=== PATIENT | female | born 1945 | race Two or more races ===

== ENCOUNTER 2020-09-12 05:41 | Inpatient (IN) | payer MEDICAID ==
[~2020-09-12] VITALS: Ht 154.9 cm; Wt 57.6 kg
--- NOTE | 2020-09-12 09:35 | NUR ---
RN NOTES PATIENT ARRIVED AT UNIT TO ROOM 327-2 VIA [facility], ACCOMPANIED BY 2 [employer] MARKETER, TRANSPORTED FROM [facility]. PATIENT AMBULATORY AND AMBULATED FROM GURNEY TO BED.
--- NOTE | 2020-09-12 09:36 | NUR ---
SPA MANAGER ADMITTING NOTES ADMITTED THIS 75-Y/O FEMALE FROM [facility] W/ ADMITTING DIAGNOSIS OF SEPSIS/COUGH AND MEDICAL HISTORY OF DM, HTN, HLD, HX OF BREAST CA AND MASTECTOMY, ADMITTED BY MELECIO ARZOLA NP. PATIENT IS AWAKE AND VERBALLY RESPONSIVE, A/O X3-4, TAGALOG-SPEAKING BUT UNDERSTANDS SLOVENIAN LANGUAGE. BREATHING EVEN AND UNLABORED, TOLERATING ROOM AIR; NOTED W/ OCCASIONAL NON-PRODUCTIVE COUGH. NO SWALLOWING ISSUES NOTED. PATIENT VERBALIZED THAT SHE HAS UPPER DENTURES. RECENT TRA[place]EL [place] TO THE [facility]. AMBULATORY W/ STEADY GAIT, MINIMAL ASSISTANCE NEEDED, CONTINENT OF BOWEL AND BLADDER. IV LINE ON RAC #22 INTACT AND PATENT. NO SKIN ISSUES NOTED. DTR-IN-LAW AND PATIENT'S SON AWARE OF PATIENT'S ADMISSION. SAFETY PRECAUTIONS INSTITUTED: BED LOCKED AND ON LOWEST POSITION, SR UP X2, CALL LIGHT USE DEMONSTRATED TO PATIENT FOR STAFF ASSISTANCE. WILL CONTINUE TO MONITOR.
[2020-09-12 10:00] VITALS: BP 157/74
[2020-09-12] MEDS ORDERED: HYDROCODONE/APAP 5/325MG TABLET PO PRN (11:00)
[2020-09-12] MEDS ORDERED: ACETAMINOPHEN 325 MG TABLET PO PRN (11:00)
[2020-09-12] MEDS ORDERED: MAG HYDROX/AL HYDROX/SIMETH 30 ML UDC PO PRN (11:00)
[2020-09-12] MEDS ORDERED: MAGNESIUM HYDROXIDE 30 ML UDC PO PRN (11:00)
[2020-09-12] MEDS ORDERED: ONDANSETRON HCL/PF 4 MG/2 ML VIAL IVP PRN (11:00)
[2020-09-12] MEDS ORDERED: Z GUARD REMEDY 2 OZ OINT TP PRN (11:00)
[2020-09-12] MEDS ORDERED: TEMAZEPAM 15 MG CAPSULE PO PRN (11:00)
[2020-09-12] MEDS ORDERED: CLOP75TA15 PO (11:35)
[2020-09-12] MEDS ORDERED: TAMO20TA4 PO (11:35)
[2020-09-12] MEDS ORDERED: [UNRECOGNIZED DRUG - OTHER] PO (11:35)
[2020-09-12] MEDS ORDERED: MULT-1160 PO (11:35)
[2020-09-12] MEDS ORDERED: ALEN70TA80 PO (11:35)
[2020-09-12] MEDS ORDERED: INSU100V7 SQ (11:35)
[2020-09-12] MEDS ORDERED: OMEG-220 PO (11:35)
[2020-09-12] MEDS ORDERED: AMLO-212 PO (11:35)
[2020-09-12] MEDS ORDERED: PANT40TA2 PO (11:35)
[2020-09-12] MEDS ORDERED: LOSA50TA39 PO (11:35)
[2020-09-12] MEDS ORDERED: SITA1TAB2 PO (11:35)
[2020-09-12] MEDS ORDERED: CALC1TAB3 PO (11:35)
[2020-09-12] MEDS ORDERED: [UNRECOGNIZED DRUG - OTHER] PO (11:36)
[2020-09-12 11:50] LABS: BASOPHILS # (AUTO) 0.1 /CMM (0.0-0.2); BASOPHILS % (AUTO) 0.6 % (0.0-2.0); EOSINOPHILS % (AUTO) 6.7 % (0.0-6.0); HEMATOCRIT 38 % (33-45); HEMOGLOBIN 12.6 g/dL (11.5-14.8); LYMPHOCYTES # (AUTO) 1.5 /CMM (0.8-4.8); LYMPHOCYTES % (AUTO) 14.9 % (20.0-44.0); MEAN CORPUSCULAR HGB CONC 33 g/dl (31.0-36.0); MEAN CORPUSCULAR VOLUME 85 fL (82-100); MONOCYTES # (AUTO) 1.5 /CMM (0.1-1.30); MONOCYTES % (AUTO) 14.3 % (2.0-12.0); NEUTROPHILS # (AUTO) 6.5 /CMM (1.8-8.9); NEUTROPHILS % (AUTO) 63.5 % (43.0-81.0); PLATELET COUNT (AUTO) 351 /CMM (150-450); RED BLOOD CELL COUNT(AUTO) 4.49 MIL/uL (4.0-5.2); WHITE BLOOD COUNT (AUTO) 10.3 K/uL (4.3-11.0)
[2020-09-12] MEDS ORDERED: DEXTROSE 50%-WATER 50 ML DISP.SYRIN IV PRN (12:00)
[2020-09-12 12:02] LABS: CALCIUM, SERUM 8.8 mg/dL (8.5-10.1); CARBON DIOXIDE 26 mmol/L (21-32); CHLORIDE 104 mmol/L (98-107); CREATININE 0.8 mg/dL (0.6-1.3); GLUCOSE 92 mg/dL (74-106); POTASSIUM 3.8 mmol/L (3.5-5.1); SODIUM SERUM 138 mmol/L (136-145); UREA NITROGEN, BLOOD 8 mg/dL (7-18)
[2020-09-12] MEDS ORDERED: ENOXAPARIN SODIUM 40 MG/0.4 ML DISP.SYRIN SQ SCH (12:30)
[2020-09-12] MEDS: TAMOXIFEN CITRATE 10 MG TABLET PO SCH (13:08)
[2020-09-12] MEDS: BLOOD SUGAR DIAGNOSTIC 1 EACH STRIP IN SCH ×3 (13:10→22:18)
[2020-09-12 13:47] LABS: EOSINOPHILS % (MANUAL) 5 % (0-4); LYMPHOCYTES % (MANUAL) 14 % (16-48); MONOCYTES % (MANUAL) 14 % (0-11.0); NEUTROPHILS % (MANUAL) 67 (42-76)
[2020-09-12] MEDS: METRONIDAZOLE 500MG/ NS 100ML 500 MG in PREMIX 1 EA IV SCH ×2 (15:56→22:54)
[2020-09-12 16:00] VITALS: BP 126/72
[2020-09-12] MEDS: INSULIN REGULAR, HUMAN 100 UNIT/ML 3 ML VIAL SQ PRN (17:31)
--- NOTE | 2020-09-12 17:55 | NUR ---
RN NOTES PATIENT SEEN BY DR. BRADLEY W/ ORDER FOR US-GUIDED THORACENTESIS OF L LUNG SECONDARY TO PLEURAL EFFUSION. PROCEDURE UNDERSTOOD BY PATIENT SHE STATED SHE HAD IT BEFORE IN THE PAST. CONSENT FORM SIGNED BY PATIENT AND PLACED IN CHART.
[2020-09-12] MEDS: GLUCERNA SHAKE 237 ML CAN PO SCH (18:42)
--- NOTE | 2020-09-12 18:42 | NUR ---
RN NOTES RECEIVED SILVINO CALHOUN AT PATIENT'S BEDSIDE; PATIENT ABLE TO DRINK WITHOUT COMPLAINT OF NAUSEA/VOMITING.
[2020-09-12 19:00] VITALS: BP 154/75
--- NOTE | 2020-09-12 19:00 | NUR ---
BUILDING CONSTRUCTION IRONWORKER CLOSING NOTES PATIENT IN BED AWAKE AND VERBALLY RESPONSIVE. A/O X3-4 ABLE TO MAKE NEEDS KNOWN. BREATHING EVEN AND UNLABORED, CONTINUES ON ROOM AIR, STILL W/ OCCASIONAL COUGH BUT NO DISCOMFORT VERBALIZED BY PATIENT. IV LINE INTACT AND PATENT. PATIENT ABLE TO EAT SMALL AMOUNT EARLIER W/O NAUSEA NOR VOMITING. PATIENT'S MEDICAL RECORDS FROM OUTSIDE HOSPITAL RELEASED CONSENTED BY PATIENT; COPY PLACED IN PATIENT'S CHART. SAFETY PRECS MAINTAINED. WILL ENDORSE TO CO FOUNDER AND PRESIDENT RN FOR NYDIA.
--- NOTE | 2020-09-12 19:30 | NUR ---
MS/RN OPENING NOTES RECEIVED PATIENT IN BED RESTING. PATIENT IS ALERT AND ORIENTED X 3-4. PATIENT BREATHING IS EVEN AND UNLABORED. NO SIGNS OF SOB OR RESPIRATORY DISTRESS NOTED. PATIENT STATES NO PAIN AT THIS TIME. IV ACCESS IN PLACE. PATIENT SON IS AT BEDSIDE. SAFETY MEASURES ARE IN PLACE, BED LOCKED AND PLACED IN THE LOWEST POSITION, SIDE RAILS UP X 2, CALL LIGHT IS WITHIN REACH. WILL CONTINUE WITH PATIENT PLAN OF CARE.
[2020-09-13] VITALS: BP 154/69
[2020-09-13 04:00] VITALS: BP_SYST 145; BP_SYST 161; BP_DIAS 72; BP_DIAS 92
[2020-09-13] MEDS: CEFTRIAXONE 1 G in IV D5W 50 ML IV SCH (06:03)
[2020-09-13] MEDS: METRONIDAZOLE 500MG/ NS 100ML 500 MG in PREMIX 1 EA IV SCH ×3 (06:38→22:34)
[2020-09-13] MEDS: BLOOD SUGAR DIAGNOSTIC 1 EACH STRIP IN SCH ×4 (06:50→21:52)
[2020-09-13] MEDS: INSULIN REGULAR, HUMAN 100 UNIT/ML 3 ML VIAL SQ PRN ×3 (06:51→17:56)
[2020-09-13 07:03] LABS: BASOPHILS # (AUTO) 0.1 /CMM (0.0-0.2); BASOPHILS % (AUTO) 0.7 % (0.0-2.0); EOSINOPHILS % (AUTO) 6.4 % (0.0-6.0); HEMATOCRIT 37 % (33-45); HEMOGLOBIN 12.3 g/dL (11.5-14.8); LYMPHOCYTES # (AUTO) 2.3 /CMM (0.8-4.8); LYMPHOCYTES % (AUTO) 22.4 % (20.0-44.0); MEAN CORPUSCULAR HGB CONC 33 g/dl (31.0-36.0); MEAN CORPUSCULAR VOLUME 85 fL (82-100); MONOCYTES # (AUTO) 1.3 /CMM (0.1-1.30); MONOCYTES % (AUTO) 12.3 % (2.0-12.0); NEUTROPHILS # (AUTO) 6.1 /CMM (1.8-8.9); NEUTROPHILS % (AUTO) 58.2 % (43.0-81.0); PLATELET COUNT (AUTO) 351 /CMM (150-450); RED BLOOD CELL COUNT(AUTO) 4.36 MIL/uL (4.0-5.2); WHITE BLOOD COUNT (AUTO) 10.4 K/uL (4.3-11.0)
--- NOTE | 2020-09-13 07:08 | NUR ---
TELE/RN CLOSING NOTES PATIENT IN BED SLEEPING EASY TO AROUSE. PATIENT IS ALERT AND ORIENTED X 4. PATIENT BREATHING IS EVEN AND UNLABORED. PATIENT SHOWS NO SIGNS OF SOB OR RESPIRATORY DISTRESS. PATIENT STATES NO PAIN AT THIS TIME. ALL NEEDS HAVE BEEN MET DURING SHIFT. PATIENT HAS IV ACCESS ON RIGHT AC 22 G INTACT FLUSHING WELL . SAFETY MEASURES ARE IN PLACE, BED IS LOCKED AND PLACED IN THE LOWEST POSITION, SIDE RAILS UP X 2, CALL LIGHT IS WITHIN REACH. WILL ENDORSE CARE TO DAY SHIFT NURSE.
--- NOTE | 2020-09-13 07:20 | NUR ---
ms rn received on bed, awake,alert,oriented x4,not in any form of distress, respirations even and unlabored,no sob noted, lungs are diminish,abdomen soft,positive bowel sound,denies pain at this time,all needs attended.
[2020-09-13 08:00] VITALS: BP 152/67
[2020-09-13] MEDS: LOSARTAN POTASSIUM 50 MG TABLET PO SCH (08:51)
[2020-09-13] MEDS: PANTOPRAZOLE 40 MG TABLET.DR PO SCH (08:51)
[2020-09-13] MEDS: AMLODIPINE BESYLATE 5 MG TABLET PO SCH (08:51)
[2020-09-13] MEDS: AZITHROMYCIN 500 MG in IV D5W 250 ML IV SCH (08:59)
[2020-09-13] MEDS: TAMOXIFEN CITRATE 10 MG TABLET PO SCH (09:00)
[2020-09-13] MEDS: GLUCERNA SHAKE 237 ML CAN PO SCH ×3 (09:09→17:23)
--- NOTE | 2020-09-13 09:10 | NUR ---
ms green breakfast served,due meds given,tolerated well.
[2020-09-13 10:23] LABS: CALCIUM, SERUM 9.2 mg/dL (8.5-10.1); CREATININE 0.8 mg/dL (0.6-1.3); POTASSIUM 3.8 mmol/L (3.5-5.1)
--- NOTE | 2020-09-13 11:00 | NUR ---
ms rn thoracentesis done w/ 80ml output sent to lab for pathology.
[2020-09-13] MEDS ORDERED: IOHEXOL-300 100 ML VIAL IV ONE (11:32)
[2020-09-13] MEDS ORDERED: IV NS 0.9% 250 ML IV ONE (11:32)
[2020-09-13] MEDS ORDERED: CT SWABBABLE VALVE TRANS SET 1 EA INFUS.SET MC ONE (11:32)
--- NOTE | 2020-09-13 12:00 | NUR ---
ms rn ct lung w/ contras done ,awaiting for result.
--- NOTE | 2020-09-13 12:30 | NUR ---
ms rn bs- [id number] - patient refused coverage due to she just drink glucerna at this time, will recheck it at 5pm.
[2020-09-13 16:00] VITALS: BP 130/65
--- NOTE | 2020-09-13 19:04 | NUR ---
ms rn on bed, no distress noted, iv inserted renny at right hand g 24.
--- NOTE | 2020-09-13 19:30 | NUR ---
MS RN OPENING NOTES PATIENT IN BED WITH EYES CLOSED. NO S/S OF DISTRESS NOTED. NO C/O PAIN AT THE MOMENT. SAFETY PRECAUTIONS IN PLACE: BED LOWEST POSITION, BREAKS LOCKED, CALL LIGHT WITHIN REACH. WILL CONTINUE TO MONITOR.
[2020-09-13 20:00] VITALS: BP 133/67
[2020-09-14] MEDS: CEFTRIAXONE 1 G in IV D5W 50 ML IV SCH (06:02)
[2020-09-14] MEDS: BLOOD SUGAR DIAGNOSTIC 1 EACH STRIP IN SCH ×5 (06:27→21:56)
[2020-09-14 06:46] LABS: BASOPHILS # (AUTO) 0.1 /CMM (0.0-0.2); BASOPHILS % (AUTO) 0.7 % (0.0-2.0); EOSINOPHILS % (AUTO) 5.8 % (0.0-6.0); HEMATOCRIT 37 % (33-45); HEMOGLOBIN 12.1 g/dL (11.5-14.8); LYMPHOCYTES % (AUTO) 19.9 % (20.0-44.0); MEAN CORPUSCULAR HGB CONC 33 g/dl (31.0-36.0); MEAN CORPUSCULAR VOLUME 86 fL (82-100); MONOCYTES # (AUTO) 1.2 /CMM (0.1-1.30); MONOCYTES % (AUTO) 12.3 % (2.0-12.0); NEUTROPHILS # (AUTO) 6.1 /CMM (1.8-8.9); NEUTROPHILS % (AUTO) 61.3 % (43.0-81.0); PLATELET COUNT (AUTO) 342 /CMM (150-450); RED BLOOD CELL COUNT(AUTO) 4.28 MIL/uL (4.0-5.2)
[2020-09-14] MEDS: INSULIN REGULAR, HUMAN 100 UNIT/ML 3 ML VIAL SQ PRN ×4 (06:53→22:12)
--- NOTE | 2020-09-14 07:23 | NUR ---
MS RN CLOSING NOTES PATIENT IN BED WITH EYES CLOSED, BARELY WENT TO BED. PATIENT TOLERATING ROOM AIR. NO S/S OF RESPIRATORY DISTRESS. NO C/O OF PAIN AT THE MOMENT. PATIENT ABLE TO MAKE NEEDS KNOWN. ALL NEEDS ATTENDED. ALL SCHEDULED MEDS ADMINISTERED. SAFETY PRECAUTIONS KEPT IN PLACE THE WHOLE TIME: BED IN LOWEST, LOCKED POSITION; CALL LIGHT WITHIN REACH. NO SIGNIFICANT CHANGE FROM LAST SHIFT. WILL ENDORSE CARE TO MORNING RN.
[2020-09-14] MEDS: METRONIDAZOLE 500MG/ NS 100ML 500 MG in PREMIX 1 EA IV SCH (07:26)
--- NOTE | 2020-09-14 07:30 | NUR ---
ms rn received on bed, awake,alert,oriented x4,not in any form of distress, respirations even and unlabored,no sob noted, lungs are diminish, abdomen soft,positive bowel sounds,denies pain at this time.
[2020-09-14 07:34] LABS: CALCIUM, SERUM 8.7 mg/dL (8.5-10.1); CREATININE 0.8 mg/dL (0.6-1.3); POTASSIUM 3.8 mmol/L (3.5-5.1)
[2020-09-14 08:00] VITALS: BP 151/84
--- NOTE | 2020-09-14 09:05 | NUR ---
ms green breakfast served,due meds given, tolerated well.
[2020-09-14] MEDS: AZITHROMYCIN 500 MG in IV D5W 250 ML IV SCH (09:14)
[2020-09-14] MEDS: TAMOXIFEN CITRATE 10 MG TABLET PO SCH (09:15)
[2020-09-14] MEDS: AMLODIPINE BESYLATE 5 MG TABLET PO SCH (09:15)
[2020-09-14] MEDS: LOSARTAN POTASSIUM 50 MG TABLET PO SCH (09:16)
[2020-09-14] MEDS: GLUCERNA SHAKE 237 ML CAN PO SCH ×3 (09:25→17:00)
[2020-09-14] MEDS: PANTOPRAZOLE 40 MG TABLET.DR PO SCH (09:25)
--- NOTE | 2020-09-14 10:00 | NUR ---
ms carlos was seen by dr. tomas w/ orders made and carried out.
[2020-09-14] MEDS ORDERED: BENZONATATE 100 MG CAPSULE PO PRN (12:30)
[2020-09-14] MEDS: METRONIDAZOLE 500 MG TABLET PO SCH ×2 (15:05→23:06)
--- NOTE | 2020-09-14 18:28 | NUR ---
ms rn on bed, no distress noted, daughter at bedside.
--- NOTE | 2020-09-14 19:34 | NUR ---
MS RN OPENING NOTES PATIENT SITTING IN BED. A/OX4. NO S/S OF DISTRESS NOTED. RESPIRATION EVEN AND UNLABORED IN ROOM AIR. NO C/O PAIN AT THE MOMENT. SAFETY PRECAUTIONS IN PLACE: BED LOWEST POSITION, BREAKS LOCKED, CALL LIGHT WITHIN REACH. WILL CONTINUE TO MONITOR.
[2020-09-14 20:00] VITALS: BP 122/65
[2020-09-14 20:21] VITALS: BP 122/65
--- NOTE | 2020-09-14 20:45 | NUR ---
MS RN NOTES CONSENT SIGNED BY PATIENT FOR CT OF ABDOMEN/PELVIS WITH CONTRAST AND CT GUIDED LUNG MASS BIOPSY. CONSENT FLAGGED IN THE CHART.
[2020-09-15] MEDS: CEFTRIAXONE 1 G in IV D5W 50 ML IV SCH (06:11)
[2020-09-15] MEDS: METRONIDAZOLE 500 MG TABLET PO SCH ×3 (06:27→22:43)
[2020-09-15] MEDS: BLOOD SUGAR DIAGNOSTIC 1 EACH STRIP IN SCH ×4 (06:50→22:43)
[2020-09-15 06:55] LABS: BASOPHILS # (AUTO) 0.1 /CMM (0.0-0.2); BASOPHILS % (AUTO) 0.8 % (0.0-2.0); EOSINOPHILS % (AUTO) 4.7 % (0.0-6.0); HEMATOCRIT 40 % (33-45); HEMOGLOBIN 12.7 g/dL (11.5-14.8); LYMPHOCYTES # (AUTO) 3.2 /CMM (0.8-4.8); LYMPHOCYTES % (AUTO) 24.4 % (20.0-44.0); MEAN CORPUSCULAR HGB CONC 32 g/dl (31.0-36.0); MEAN CORPUSCULAR VOLUME 86 fL (82-100); MONOCYTES # (AUTO) 1.4 /CMM (0.1-1.30); MONOCYTES % (AUTO) 10.3 % (2.0-12.0); NEUTROPHILS # (AUTO) 7.9 /CMM (1.8-8.9); NEUTROPHILS % (AUTO) 59.8 % (43.0-81.0); PLATELET COUNT (AUTO) 363 /CMM (150-450); RED BLOOD CELL COUNT(AUTO) 4.62 MIL/uL (4.0-5.2); WHITE BLOOD COUNT (AUTO) 13.2 K/uL (4.3-11.0)
--- NOTE | 2020-09-15 07:12 | NUR ---
MS RN CLOSING NOTES PATIENT IN BED. A/OX4. NO SIGNS OF DISTRESS NOTED. RESPIRATORY EVEN AND UNLABORED. NO C/O PAIN AT THE MOMENT. PATIENT ABLE TO MAKE NEEDS KNOWN. ALL NEEDS ATTENDED. ALL SCHEDULED MEDS ADMINISTERED. SAFETY PRECAUTIONS KEPT IN PLACE THE WHOLE SHIFT: BED IN LOWEST, LOCKED POSITION, CALL LIGHT WITHIN REACH. PATIENT SEEN BY DR. CID. CONSENTS WITNESSED BY RN AND SIGNED BY PATIENT. CONSENTS FLAGGED IN CHART. NO SIGNIFICANT CHANGES SINCE LAST SHIFT. WILL ENDORSE CARE TO MORNING SHIFT RN.
[2020-09-15 07:14] LABS: CALCIUM, SERUM 8.2 mg/dL (8.5-10.1); CREATININE 0.9 mg/dL (0.6-1.3); MAGNESIUM 1.8 mg/dL (1.8-2.4); POTASSIUM 4.1 mmol/L (3.5-5.1)
--- NOTE | 2020-09-15 07:25 | NUR ---
MS RN NOTES PATIENT IN BED ALERT ORIENTED X 4. NO ACUTE DISTRESS NOTED. BREATHING UNLABORED, IV ACCESS PATENT AND INTACT, NO REDNESS NO SWELLING NOTED. SAFETY MEASURES IN PLACE. CALL LIGHT WITHIN REACH. WILL CONTINUE TO MONITOR ACCORDINGLY.
--- NOTE | 2020-09-15 07:28 | NUR ---
MS WALLER NOTES PATIENT IN BED ALERT ORIENTED X 4. NO ACUTE DISTRESS NOTED. BREATHING UNLABORED. SAFETY MEASURES IN PLACE. CALL LIGHT WITHIN REACH. WILL CONTINUE TO MONITOR ACCORDINGLY. Addendum: 09/15/20 at 0800 by MOISÉS MUSA RN DISREGARD ABOVE NOTES, WRONG PATIENT
[2020-09-15] MEDS: PANTOPRAZOLE 40 MG TABLET.DR PO SCH (07:38)
[2020-09-15 08:00] VITALS: BP 132/64
[2020-09-15] MEDS: GLUCERNA SHAKE 237 ML CAN PO SCH ×3 (08:00→17:11)
[2020-09-15] MEDS: AZITHROMYCIN 500 MG in IV D5W 250 ML IV SCH (08:47)
[2020-09-15] MEDS: LOSARTAN POTASSIUM 50 MG TABLET PO SCH (08:48)
[2020-09-15] MEDS: AMLODIPINE BESYLATE 5 MG TABLET PO SCH (08:48)
[2020-09-15] MEDS: TAMOXIFEN CITRATE 10 MG TABLET PO SCH (08:49)
[2020-09-15] MEDS: INSULIN REGULAR, HUMAN 100 UNIT/ML 3 ML VIAL SQ PRN ×2 (11:51→22:44)
[2020-09-15] MEDS ORDERED: IOHEXOL-300 100 ML VIAL IV ONE (13:27)
[2020-09-15] MEDS ORDERED: CT SWABBABLE VALVE TRANS SET 1 EA INFUS.SET MC ONE (13:28)
[2020-09-15] MEDS ORDERED: IV NS 0.9% 250 ML IV ONE (13:28)
--- NOTE | 2020-09-15 13:35 | NUR ---
MS RN NOTES PATIENT TRANSPORTED TO FOR CT IN STABLE CONDITION, ALERT ORIENTED X 4.
[2020-09-15] MEDS ORDERED: FENTANYL PF 250MCG/5ML AMPUL IV ONE (14:00)
[2020-09-15] MEDS ORDERED: NALOXONE PREFILLED SYRINGE 2 MG/2 ML SYRINGE IV ONE (14:00)
[2020-09-15] MEDS ORDERED: MIDAZOLAM HCL 5MG/ML VIAL 25 MG/5 ML VIAL IV ONE (14:00)
--- NOTE | 2020-09-15 15:50 | NUR ---
MS RN NOTES PATIENT CAME BACK FROM CT IN STABLE CONDITION. NO ACUTE DISTRESS NOTED. PER DR PENA PATIENT NEEDS CHEST XRAY AFTER 2 HOURS AND KEEP NPO FOR NOW.ORDERS CLARIFIED AND READBACK WITH , NOTED AND CARRIED OUT
[2020-09-15 16:00] VITALS: BP 135/64
--- NOTE | 2020-09-15 17:00 | NUR ---
MS RN NOTES CLARIFIED WITH DR PENA IF PATIENT OK TO EAT NOT , PER MD MAY RESUME PREVIOUS DIET
--- NOTE | 2020-09-15 17:04 | NUR ---
MS RN NOTES CLARIFIED WITH STEAM TENDER IF STILL OK TO GIVE FLAGYL 500MG PO SCHEDULED FOR 1500, SAID IT'S STILL OK TO GIVE NOW AND MAY GIVE TONIGHT SCHEDULED
--- NOTE | 2020-09-15 18:48 | NUR ---
MS RN NOTES PATIENT IN BED ALERT ORIENTED X 4. NO ACUTE DISTRESS NOTED. BREATHING UNLABORED, IV ACCESS PATENT AND INTACT, NO REDNESS NO SWELLING NOTED. NEEDS ATTENDED AND ANTICIPATED . SAFETY MEASURES IN PLACE. CALL LIGHT WITHIN REACH. WILL ENDORSE TO NIGHT NURSE FOR CONTINUITY OF CARE
--- NOTE | 2020-09-15 19:30 | NUR ---
MS RN OPENING NOTE PATIENT IN BED RESTING, ALERT ORIENTED X 4. NO ACUTE DISTRESS NOTED. BREATHING EVEN AND UNLABORED, PATIENT STILL HAS COUGH PRESENT. IV ACCESS PATENT AND INTACT, NO REDNESS NO SWELLING NOTED. SAFETY MEASURES IN PLACE: BED IN LOCKED AND LOWEST POSITION, CALL LIGHT WITHIN REACH, SIDE RAILS UP. WILL MONITOR PATIENT CLOSELY.
[2020-09-15 20:00] VITALS: BP 123/56
--- NOTE | 2020-09-16 06:10 | NUR ---
MS RN CLOSING NOTE PATIENT IN BED RESTING, EASILY AROUSABLE, A/O X 4. NOC/O PAIN OR DISCOMFORT AT THIS TIME. BREATHING EVEN AND UNLABORED, COUGH STILL PRESENT. IV ACCESS PATENT AND INTACT, NO REDNESS NO SWELLING NOTED. ATB THERAPY CARRIED OUT, ROUTINE AND PRN MEDS GIVEN. ALL NEEDS MET AND ATTENDED. PATIENT AMBULATORY. SAFETY MEASURES MAINTAINED: BED IN LOCKED AND LOWEST POSITION, CALL LIGHT WITHIN REACH, SIDE RAILS UP. WILL ENDORSE TO DAY SHIFT NURSE FOR NYDIA.
[2020-09-16] MEDS: METRONIDAZOLE 500 MG TABLET PO SCH ×2 (06:19→14:12)
[2020-09-16] MEDS: CEFTRIAXONE 1 G in IV D5W 50 ML IV SCH (06:19)
--- NOTE | 2020-09-16 07:27 | NUR ---
RN OPENING NOTE PATIENT IN BED RESTING, ALERT ORIENTED X 4. NO ACUTE DISTRESS NOTED. BREATHING EVEN AND UNLABORED, PATIENT STILL HAS COUGH PRESENT. IV ACCESS PATENT AND INTACT, NO REDNESS NO SWELLING NOTED. SAFETY MEASURES IN PLACE: BED IN LOCKED AND LOWEST POSITION, CALL LIGHT WITHIN REACH, SIDE RAILS UP.
[2020-09-16 08:00] VITALS: BP 133/60
[2020-09-16 08:50] LABS: BASOPHILS % (AUTO) 0.3 % (0.0-2.0); EOSINOPHILS % (AUTO) 2.6 % (0.0-6.0); HEMATOCRIT 38 % (33-45); LYMPHOCYTES # (AUTO) 1.8 /CMM (0.8-4.8); MEAN CORPUSCULAR HGB CONC 32 g/dl (31.0-36.0); MEAN CORPUSCULAR VOLUME 87 fL (82-100); MONOCYTES # (AUTO) 1.3 /CMM (0.1-1.30); MONOCYTES % (AUTO) 10.5 % (2.0-12.0); NEUTROPHILS # (AUTO) 8.8 /CMM (1.8-8.9); NEUTROPHILS % (AUTO) 71.6 % (43.0-81.0); PLATELET COUNT (AUTO) 306 /CMM (150-450); RED BLOOD CELL COUNT(AUTO) 4.32 MIL/uL (4.0-5.2); WHITE BLOOD COUNT (AUTO) 12.2 K/uL (4.3-11.0)
[2020-09-16] MEDS: GLUCERNA SHAKE 237 ML CAN PO SCH ×2 (08:59→11:06)
[2020-09-16] MEDS: AZITHROMYCIN 500 MG in IV D5W 250 ML IV SCH (08:59)
[2020-09-16 09:01] VITALS: BP 131/82
[2020-09-16] MEDS: TAMOXIFEN CITRATE 10 MG TABLET PO SCH (09:01)
[2020-09-16] MEDS: LOSARTAN POTASSIUM 50 MG TABLET PO SCH (09:01)
[2020-09-16] MEDS: PANTOPRAZOLE 40 MG TABLET.DR PO SCH (09:01)
[2020-09-16] MEDS: AMLODIPINE BESYLATE 5 MG TABLET PO SCH (09:01)
[2020-09-16 09:02] LABS: CALCIUM, SERUM 8.1 mg/dL (8.5-10.1); CREATININE 0.9 mg/dL (0.6-1.3); POTASSIUM 4.8 mmol/L (3.5-5.1)
[2020-09-16] MEDS: BLOOD SUGAR DIAGNOSTIC 1 EACH STRIP IN SCH ×2 (09:19→11:06)
[2020-09-16] MEDS: INSULIN REGULAR, HUMAN 100 UNIT/ML 3 ML VIAL SQ PRN (11:16)
--- NOTE | 2020-09-16 16:32 | NUR ---
DISCHARGE NOTE PATIENT DISCHARGED AT 1530 IN STABLE CONDITION, ALL BELONGINGS ACCOUNTED FOR. VITAL SIGNS OBTAINED, BELONGINGS SHEET AND DISCHARGE SUMMARY SIGNED AND ACCOUNTED FOR. PATIENT TAKEN DOWNSTAIRS BY WHEELCHAIR AND MET DAUGHTER IN LAW, DROPPED OFF IN CAR AND DISCHARGED. MEDICATION PRESCRIPTIONS AND LIST CONFIRMED WITH PHARMACY. PATIENT MADE AWARE TO F/U with PCP IN ONE WEEK FOR ONCOLOGY.
== END 2020-09-16 15:15 | disposition home or self-care (01) | DRG 720 ==
LOC: TELE 09:39 → MED 09-13 08:03
PROVIDERS: ADMIT Nurse Practitioner Family; ATTEND Nurse Practitioner Family
PROC: 0W9B3ZZ Drainage of Left Pleural Cavity, Percutaneous Approach (ICD-10-PCS; principal; 2020-09-13)
PROC: 0BBJ3ZX Excision of Left Lower Lung Lobe, Percutaneous Approach, Diagnostic (ICD-10-PCS; 2020-09-15)
DX: A41.9 Sepsis, unspecified organism (principal); J69.0 Pneumonitis due to inhalation of food and vomit; J90 Pleural effusion, not elsewhere classified; E78.5 Hyperlipidemia, unspecified; E11.9 Type 2 diabetes mellitus without complications; E87.1 Hypo-osmolality and hyponatremia; I10 Essential (primary) hypertension; Z85.3 Personal history of malignant neoplasm of breast; Z90.12 Acquired absence of left breast and nipple; R91.8 Other nonspecific abnormal finding of lung field; I31.3 Pericardial effusion (noninflammatory); R74.01 Elevation of levels of liver transaminase levels; Z90.710 Acquired absence of both cervix and uterus; K76.9 Liver disease, unspecified; K80.20 Calculus of gallbladder without cholecystitis without obstruction; Z80.9 Family history of malignant neoplasm, unspecified
CPT/HCPCS: 36415; 71045-TC; 71046; 71260-TC; 76942-TC; 77012-TC; 80048-TC; 80061-TC; 82378; 82962-TC; 83605-TC; 83735-TC; 85025-TC; 85610-TC; 85730-TC; 86300; 86480; 87070-TC; 87075-TC; 87081-TC; 87116; 87206; 88108-TC; 88305-TC; 88333-TC; 89051-TC; 93307-TC; 97112-TC; 97116-TC; 97530-TC; A4216; G0378; J0456; J0696; J1650; J1815; J2250; J2310; J2405; J3010; J7050; J7060; Q9967

== ENCOUNTER 2020-09-20 01:29 | Inpatient (IN) | payer MEDICAID ==
[~2020-09-20] VITALS: Ht 147.3 cm; Wt 56.7 kg
[~2020-09-20 01:29] MED LIST: ALEN70TA80 PO; AMLO-212 PO; CALC1TAB3 PO; CLOP75TA15 PO; INSU100V7 SQ; LOSA50TA39 PO; MULT-1160 PO; OMEG-220 PO; PANT40TA2 PO; SITA1TAB2 PO; TAMO20TA4 PO; [UNRECOGNIZED DRUG - OTHER] PO; [UNRECOGNIZED DRUG - OTHER] PO
--- NOTE | 2020-09-20 01:51 | NUR ---
PT BIB SON C/O COUGHING BLOOD SINCE 9PM. PLACED IN BED 5 ON MONITOR AND PULSE OX. PT STATED SHE WAS DISCHARGED FROM THE HOSPITAL ABOUT A WEEK AGO FOR TB. PLACED IN ER BED 5.
--- NOTE | 2020-09-20 02:05 | NUR ---
BLOOD WORK COLLECTED, SENT TO LAB.
[2020-09-20 02:39] LABS: BASOPHILS # (AUTO) 0.1 /CMM (0.0-0.2); BASOPHILS % (AUTO) 0.6 % (0.0-2.0); EOSINOPHILS % (AUTO) 2.5 % (0.0-6.0); HEMATOCRIT 38 % (33-45); HEMOGLOBIN 12.2 g/dL (11.5-14.8); LYMPHOCYTES # (AUTO) 1.7 /CMM (0.8-4.8); LYMPHOCYTES % (AUTO) 11.7 % (20.0-44.0); MEAN CORPUSCULAR HGB CONC 32 g/dl (31.0-36.0); MEAN CORPUSCULAR VOLUME 88 fL (82-100); MONOCYTES # (AUTO) 1.4 /CMM (0.1-1.30); MONOCYTES % (AUTO) 9.4 % (2.0-12.0); NEUTROPHILS % (AUTO) 75.8 % (43.0-81.0); PLATELET COUNT (AUTO) 315 /CMM (150-450); RED BLOOD CELL COUNT(AUTO) 4.32 MIL/uL (4.0-5.2); WHITE BLOOD COUNT (AUTO) 14.4 K/uL (4.3-11.0)
--- NOTE | 2020-09-20 02:48 | NUR ---
EMT AT BEDSIDE FOR EKG
[2020-09-20 02:56] LABS: CALCIUM, SERUM 9.3 mg/dL (8.5-10.1); CARBON DIOXIDE 27 mmol/L (21-32); CHLORIDE 99 mmol/L (98-107); CREATININE 0.9 mg/dL (0.6-1.3); GLUCOSE 178 mg/dL (74-106); SODIUM SERUM 136 mmol/L (136-145); UREA NITROGEN, BLOOD 12 mg/dL (7-18)
[2020-09-20 03:08] LABS: ALANINE AMINOTRANSFERASE 26 U/L (12-78); ALBUMIN 2.6 g/dL (3.4-5.0); ALKALINE PHOSPHATASE 83 U/L (46-116); ASPARTATE AMINOTRANSFERASE 59 U/L (15-37); B-TYPE NATRIURETIC PEPTIDE 57 PG/ML (0-125); BILIRUBIN,DIRECT 0.1 mg/dL (0.0-0.2); BILIRUBIN,TOTAL 0.5 mg/dL (0.2-1.0); TOTAL PROTEIN, SERUM 7.6 g/dL (6.4-8.2)
[2020-09-20] MEDS ORDERED: PIPERACILLIN /TAZOBACTAM 3.375 G in IV D5W 50 ML IV ONE (05:30)
[2020-09-20] MEDS ORDERED: VANCOMYCIN 1 GM in IV D5W 250 ML IV ONE (05:30)
[2020-09-20] MEDS ORDERED: IV NS 0.9% 1,000 ML BAG IV ONE (05:30)
--- NOTE | 2020-09-20 05:34 | NUR ---
ER MD SPOKE TO DR. LO REGARDING PT ADMISSION.
[2020-09-20] MEDS ORDERED: VANCOMYCIN 1 GM VIAL ONE (05:46)
[2020-09-20] MEDS ORDERED: PIPERACILLIN /TAZOBACTAM 3.375 G VIAL IV ONE (05:46)
[2020-09-20] MEDS ORDERED: MAG HYDROX/AL HYDROX/SIMETH 30 ML UDC PO PRN (06:00)
[2020-09-20] MEDS ORDERED: ZOLPIDEM TARTRATE 5 MG TABLET PO PRN (06:00)
[2020-09-20] MEDS ORDERED: MAGNESIUM HYDROXIDE 30 ML UDC PO PRN (06:00)
[2020-09-20] MEDS ORDERED: ONDANSETRON HCL/PF 4 MG/2 ML VIAL IVP PRN (06:00)
[2020-09-20] MEDS ORDERED: Z GUARD REMEDY 2 OZ OINT TP PRN (06:00)
[2020-09-20] MEDS ORDERED: ACETAMINOPHEN 325 MG TABLET PO PRN (06:00)
[2020-09-20] MEDS ORDERED: HYDROCODONE/APAP 5/325MG TABLET PO PRN (06:00)
--- NOTE | 2020-09-20 06:02 | NUR ---
APARNA [phone]
--- NOTE | 2020-09-20 07:10 | NUR ---
ASSESSED PT ON BED AWAKE AND ALERT, NOT IN RESPIRATORY DISTRESS, V/S STABLE. KEPT RESTED AND COMFORTABLE. WILL CONTINUE TO MONITOR.
[2020-09-20] MEDS ORDERED: ENOXAPARIN SODIUM 40 MG/0.4 ML DISP.SYRIN SQ ONE (07:18)
[2020-09-20] MEDS: ENOXAPARIN SODIUM 40 MG/0.4 ML DISP.SYRIN SQ SCH (07:19)
[2020-09-20] MEDS: PANTOPRAZOLE 40 MG TABLET.DR PO SCH (07:33)
[2020-09-20] MEDS ORDERED: PANTOPRAZOLE 40 MG TABLET.DR PO ONE (07:33)
--- NOTE | 2020-09-20 08:40 | NUR ---
REPORT GIVEN TO SRIDHAR KHAN FOR NYDIA.
--- NOTE | 2020-09-20 10:15 | NUR ---
TELE ADMIT FROM ER AFTER REPORT RECEIVE FROM JUDSON WALLER. PATIENT ORIENTED TO PRIMARY RN, UNIT, ROOM, BED, AND UNIT POLICIES REGARDING PATIENT CARE AND VISITING HOURS. PATIENT NOW ON CONTINUOUS TELEMETRY MONITORING. PT WEIGHED BY DOMINIC AND ENCOURAGED TO CALL IF THE NEED SOMETHING. ALL QUESTIONS AND CONCERNS ADDRESSED. PATIENT VERBALIZED UNDERSTANDING.
--- NOTE | 2020-09-20 10:20 | NUR ---
LAB AT BESIDE
--- NOTE | 2020-09-20 10:26 | NUR ---
PT TO CT
[2020-09-20] MEDS: PIPERACILLIN /TAZOBACTAM 3.375 G in IV D5W 100 ML IV SCH ×2 (11:36→17:14)
[2020-09-20] MEDS: IV 1/2NS 1000 ML 1,000 ML IV PRN (11:37)
[2020-09-20 12:00] VITALS: BP 133/100
[2020-09-20 15:10] VITALS: BP 133/100
[2020-09-20 16:00] VITALS: BP 167/79
--- NOTE | 2020-09-20 18:21 | NUR ---
RN NOTES PATIENT COMPLIANT WITH CARE, ALL MD ORDERS AND MEDICATIONS CARRIED OUT, REQUESTED BLOOD SUGAR MEDICATIONS REFERRED TO HOME RECONCILIATION OF BS MEDICATIONS AWAITING NEW ORDERS FOR THIS DG, IV SITE INTACT, PATENT, NO INFLAMMATION AND NO REDNESS AT IV SITE NOTED, ALL NEEDS MET AND PROVIDED MEALS AND NOURISHMENT NEEDED , ON MS DUE TO NOT HAVING HER UPPER OR LOWER DENTURES AT THIS TIME, GOOD APPETITE, NO ASPIRATIONS NOTED, CALL LIGHT IN REACH. ABLE TO MAKE NEEDS KNOWN, ALL PPE WORN DURING CARE AND TREATMENTS STANDARD AND DROPLET PRECAUTIONS CARRIED OUT.
--- NOTE | 2020-09-20 19:49 | NUR ---
RECEIVED PATIENT ASLEEP RESP ENEN AND UNLABORED DROPLET PRECAUTIONS IV RIGHT HAND
[2020-09-20 20:00] VITALS: BP 158/79
[2020-09-21] VITALS: BP 156/72
[2020-09-21] MEDS ORDERED: VANCOMYCIN 1 GM in IV D5W 250 ML IV SCH
[2020-09-21 00:58] VITALS: BP 156/72
[2020-09-21] MEDS: PIPERACILLIN /TAZOBACTAM 3.375 G in IV D5W 100 ML IV SCH ×3 (02:01→18:07)
[2020-09-21 04:00] VITALS: BP 145/71
[2020-09-21 04:50] VITALS: BP 145/71
--- NOTE | 2020-09-21 04:58 | NUR ---
STEADY ON HER LEGS AMBULATES TO THE BATHROOM WITH STANDBY ASSIST UNABLE TO OBTAIN ORDERED UA 1ST TIME SPILLED OUT OF MEASURING HAT 2ND RAND SHE ,ISSED TO VOID IN THE HAT PRODUCTIVE COUGH NO BLOOD TINGED SPUTUM SEEN D/T HEAVY COUGHING INCONTENENT URINE FREQ
[2020-09-21] MEDS: ENOXAPARIN SODIUM 40 MG/0.4 ML DISP.SYRIN SQ SCH (05:42)
[2020-09-21 07:26] LABS: BASOPHILS # (AUTO) 0.1 /CMM (0.0-0.2); BASOPHILS % (AUTO) 0.7 % (0.0-2.0); EOSINOPHILS % (AUTO) 3.8 % (0.0-6.0); HEMATOCRIT 35 % (33-45); HEMOGLOBIN 11.8 g/dL (11.5-14.8); LYMPHOCYTES # (AUTO) 1.6 /CMM (0.8-4.8); LYMPHOCYTES % (AUTO) 14.7 % (20.0-44.0); MEAN CORPUSCULAR HGB CONC 34 g/dl (31.0-36.0); MEAN CORPUSCULAR VOLUME 86 fL (82-100); MONOCYTES # (AUTO) 1.5 /CMM (0.1-1.30); MONOCYTES % (AUTO) 13.4 % (2.0-12.0); NEUTROPHILS # (AUTO) 7.4 /CMM (1.8-8.9); NEUTROPHILS % (AUTO) 67.4 % (43.0-81.0); PLATELET COUNT (AUTO) 328 /CMM (150-450); RED BLOOD CELL COUNT(AUTO) 4.08 MIL/uL (4.0-5.2); WHITE BLOOD COUNT (AUTO) 10.9 K/uL (4.3-11.0)
--- NOTE | 2020-09-21 08:01 | NUR ---
MS/RN OPENING NOTES RECEIVED PATIENT ON BED AWAKE ALERT AND ORIENTED X3. PATIENT IN NO APPARENT RESPIRATORY DISTRESS NOTED. NO COMPLAINED OF PAIN NOTED. WILL CONTINUE TO MONITOR.
[2020-09-21 08:02] LABS: CALCIUM, SERUM 8.5 mg/dL (8.5-10.1); CREATININE 0.8 mg/dL (0.6-1.3); MAGNESIUM 1.9 mg/dL (1.8-2.4); PHOSPHORUS 4.3 mg/dL (2.5-4.9); POTASSIUM 3.7 mmol/L (3.5-5.1)
[2020-09-21] MEDS: PANTOPRAZOLE 40 MG TABLET.DR PO SCH (08:26)
--- NOTE | 2020-09-21 11:38 | NUR ---
RT NOTE: ATTEMPTED TO OBTAIN SPUTUM SAMPLE BUT PATIENT STATES SHE CAN NOT DO IT RIGHT NOW BUT WILL ATTEMPT AGAIN LATER. PATIENT WAS INSTRUCTED TO COUGH AND SPIT PHLEGM IN STERILE CUT PROVIDED. PATIENT STATES THAT SHE WILL CALL WHEN SAMPLE IS OBTAINED. NURSE NOTIFIED.
--- NOTE | 2020-09-21 19:26 | NUR ---
MS/RN CLOSING NOTES PATIENT IS ON BED ALERT AND ORIENTED X 4.PATIENT IS ON ROOM AIR SATURATION 97%. PATIENT IN NO APPARENT RESPIRATORY DISTRESS NOTED. NO COMPLAINED OF PAIN NOTED AT THIS TIME. IV ACCESS AT RIGHT WRIST #20G AND RIGHT HAND # 22 WITH IV FLUID OF 1/2 NS 1L AT 75 ML/HOUR ON AND INFUSING WELL. SEEN AND EXAMINED BY MD WITH ORDERS MADE AND CARRIED OUT. ALL DUE MEDICATIONS WAS GIVEN. SAFETY PRECAUTIONS WAS IN PLACED. ALL NEEDS WAS ATTENDED. BED IN LOWEST POSITION AND LOCKED. SIDERAILS UP X2. CALL LIGHT WITHIN REACH. WILL ENDORSED TO SPEECH PROFESSOR FOR [facility]DIA.
--- NOTE | 2020-09-21 19:45 | NUR ---
MS RN OPENING NOTES PATIENT IN BED. A/OX4 AND ABLE TO MAKE HER NEEDS KNOWN. NO S/S OF DISTRESS. TOLERATING ROOM AIR. NO C/O PAIN AT THE MOMENT. SAFETY IN PLACE: BED IN LOWEST, LOCKED POSITION; CALL LIGHT WITHIN REACH. WILL CONTINUE TO MONITOR.
[2020-09-21 20:00] VITALS: BP 156/78
[2020-09-21] MEDS: VANCOMYCIN 1 GM in IV D5W 250 ML IV SCH (20:01)
[2020-09-21 20:38] VITALS: BP 156/78
[2020-09-22] MEDS: PIPERACILLIN /TAZOBACTAM 3.375 G in IV D5W 100 ML IV SCH ×3 (02:14→17:49)
[2020-09-22] MEDS: ENOXAPARIN SODIUM 40 MG/0.4 ML DISP.SYRIN SQ SCH (06:00)
[2020-09-22 06:30] LABS: BASOPHILS # (AUTO) 0.1 /CMM (0.0-0.2); BASOPHILS % (AUTO) 0.6 % (0.0-2.0); HEMATOCRIT 36 % (33-45); HEMOGLOBIN 11.9 g/dL (11.5-14.8); LYMPHOCYTES # (AUTO) 1.9 /CMM (0.8-4.8); LYMPHOCYTES % (AUTO) 18.7 % (20.0-44.0); MEAN CORPUSCULAR HGB CONC 33 g/dl (31.0-36.0); MEAN CORPUSCULAR VOLUME 87 fL (82-100); MONOCYTES # (AUTO) 1.4 /CMM (0.1-1.30); MONOCYTES % (AUTO) 13.7 % (2.0-12.0); NEUTROPHILS # (AUTO) 6.4 /CMM (1.8-8.9); PLATELET COUNT (AUTO) 317 /CMM (150-450); RED BLOOD CELL COUNT(AUTO) 4.19 MIL/uL (4.0-5.2); WHITE BLOOD COUNT (AUTO) 10.2 K/uL (4.3-11.0)
--- NOTE | 2020-09-22 06:42 | NUR ---
MS RN CLOSING NOTES PATIENT IN BED. A/OX4. ABLE TO MAKE NEEDS KNOWN. ISOLATION IN PLACE. NO S/S OF DISTRESS. NO C/O PAIN. ALL NEEDS ATTENDED. ALL SCHEDULED MEDS ADMINISTERED. PATIENT SCHEDULED FOR SURGERY TODAY AT 1330. NPO SINCE MIDNIGHT. CONSENTS SIGNED AND FLAGGED IN THE CHART. CHECKLIST FLAGGED IN THE CHART. SAFETY KEPT IN PLACE THE WHOLE SHIFT. BED IN LOWEST, LOCKED POSITION, CALL LIGHT WITHIN REACH. WILL ENDORSE CARE TO MORNING SHIFT NURSE.
[2020-09-22 06:47] LABS: CALCIUM, SERUM 8.8 mg/dL (8.5-10.1); CARBON DIOXIDE 29 mmol/L (21-32); CHLORIDE 105 mmol/L (98-107); CREATININE 0.7 mg/dL (0.6-1.3); GLUCOSE 163 mg/dL (74-106); MAGNESIUM 2.1 mg/dL (1.8-2.4); PHOSPHORUS 4.6 mg/dL (2.5-4.9); POTASSIUM 3.8 mmol/L (3.5-5.1); SODIUM SERUM 143 mmol/L (136-145); UREA NITROGEN, BLOOD 11 mg/dL (7-18)
[2020-09-22] MEDS: PANTOPRAZOLE 40 MG TABLET.DR PO SCH (07:30)
[2020-09-22 08:00] VITALS: BP 139/69
--- NOTE | 2020-09-22 08:08 | NUR ---
MS RN OPENING NOTE PATIENT IS IN BED RESTING.PATIENT IS IN NO DISTRESS. PATIENT IS ON ROOM AIR, NO SOB NOTED. PATIENT IS NPO DUE TO SURGERY. SAFETY PRECAUTIONS ARE ON, BED IS LOCKED IN THE LOWEST POSITION, SIDE RAILS ARE UP. CALL LIGHT WITHIN REACH. WILL CONTINUE TO MONITOR CLOSELY THROUGHOUT THE SHIFT.
[2020-09-22] MEDS: VANCOMYCIN 1 GM in IV D5W 250 ML IV SCH ×2 (08:20→19:50)
[2020-09-22 13:02] LABS: BILIRUBIN,DIRECT 0.2 mg/dL (0.0-0.2); BILIRUBIN,TOTAL 0.5 mg/dL (0.2-1.0)
[2020-09-22] MEDS ORDERED: ANESTHESIA TRAY IN PYXIS 1 EA TRAY MC ONE (13:22)
[2020-09-22] MEDS ORDERED: FENTANYL PF 100MCG/2ML AMPUL ONE (14:28)
[2020-09-22] MEDS ORDERED: SUCCINYLCHOLINE CHLORIDE 20 MG/ML VIAL ONE (14:28)
[2020-09-22] MEDS ORDERED: ROCURONIUM BROMIDE 50 MG/5 ML ONE (14:29)
[2020-09-22 16:00] VITALS: BP 124/61
[2020-09-22] MEDS ORDERED: MORPHINE SULFATE INJ 2 MG/ML DISP.SYRIN IV PRN (17:00)
--- NOTE | 2020-09-22 17:24 | NUR ---
PHYSICIAN INDUSTRIAL NOTE PATIENT CAME BACK FROM SURGERY, VITALS ARE WITHIN NORMAL LIMITS, PATIENT IS ON 2L OXYGEN FOR COMFORT. PATIENT IS PLACED ON REGULAR DIET, RESUME PRE OPERATIVE ACTIVITIES TOLERATED.
--- NOTE | 2020-09-22 19:28 | NUR ---
BRIM POUNCER MACHINE OPERATOR OPENING NOTE PATIENT IS IN BED RESTING.PATIENT IS IN NO DISTRESS. PATIENT IS ON ROOM AIR, NO SOB NOTED. PATIENT IS NPO DUE TO SURGERY. PATIENT IS ON TELE MONITOR. SAFETY PRECAUTIONS ARE ON, BED IS LOCKED IN THE LOWEST POSITION, SIDE RAILS ARE UP. CALL LIGHT WITHIN REACH. ENDORSE PATIENT TO PHOTOGRAMMETRIST NURSE FOR NYDIA. Addendum: 09/22/20 at 1929 by DIAN RUANO RN BRIM POUNCER MACHINE OPERATOR CLOSING NOTE PATIENT IS IN BED RESTING.PATIENT IS IN NO DISTRESS. PATIENT IS ON ROOM AIR, NO SOB NOTED. PATIENT IS NPO DUE TO SURGERY. PATIENT IS ON TELE MONITOR. SAFETY PRECAUTIONS ARE ON, BED IS LOCKED IN THE LOWEST POSITION, SIDE RAILS ARE UP. CALL LIGHT WITHIN REACH. ENDORSE PATIENT TO PHOTOGRAMMETRIST NURSE FOR NYDIA.
[2020-09-22 20:00] VITALS: BP 127/66
--- NOTE | 2020-09-22 20:00 | NUR ---
RN NOTES PM SHIFT RECEIVED PATIENT IN BED, ALERT AND ORIENTED X4, ROOM AIR, NO SOB, HOB ELEVATED, RIGHT ANTERIOR LOBE WITH DIMINISHED BREATH SOUNDS, LEFT ANTERIOR UPPER LOBE CLEAR BREATH SOUNDS, S/P PLEURX PLACEMENT, DRESSING DRY AND INTACT. ON AIRBORNE ISOLATION, KEPT SAFE, CALL LIGHT WITHIN REACH.
[2020-09-23] MEDS ORDERED: DEXTROSE 50%-WATER 50 ML DISP.SYRIN IV PRN
[2020-09-23] MEDS: BLOOD SUGAR DIAGNOSTIC 1 EACH STRIP IN SCH ×5 (00:21→22:06)
[2020-09-23] MEDS: INSULIN REGULAR, HUMAN 100 UNIT/ML 3 ML VIAL SQ PRN ×5 (00:22→22:10)
[2020-09-23] MEDS: PIPERACILLIN /TAZOBACTAM 3.375 G in IV D5W 100 ML IV SCH ×3 (02:08→17:16)
[2020-09-23 04:00] VITALS: BP 112/57
--- NOTE | 2020-09-23 06:09 | NUR ---
RN NOTES PM SHIFT ALERT AND ORIENTED X4, 2LPM VIA NC PRN, STABLE ON ROOM AIR, NO DYSPNEA NOTED, S/P PLEURX CATHETER PLACEMENT TO LEFT LOWER LOBE OF CHEST, DRESSING DRY AND INTACT, NO DRAINAGE, ACTIVELY COUGHING BLOOD, FOR AFB SMEAR #3, NEW ORDER OF ACCUCHECK ACHS, VANCOMYCIN AND ZOSYN IV, WILL NEED PICC LINE PLACEMENT, IV LINE ARE BECOMING UNSTABLE, FOR ID AND ONCOLOGY CONSULT.
--- NOTE | 2020-09-23 07:49 | NUR ---
BLENDER HELPER OPENING NOTE RECEIVED PATIENT LYING IN BED, RESTING. NO DISTRESS OR PAIN NOTED. NO SOB NOTED. PATIENT ON ROOM AIR. NO SOB NOTED. PATIENT ON AIRBORNE ISOLATION. TELE MONITOR READS SINUS RHYTHM. SAFETY PRECAUTIONS IMPLEMENTED, BED IN LOCKED AND LOWEST POSITION, SIDE RAILS X2. CALL LIGHT WITHIN REACH. WILL CONTINUE TO MONITOR.
[2020-09-23 08:00] VITALS: BP 126/69
[2020-09-23] MEDS: PANTOPRAZOLE 40 MG TABLET.DR PO SCH (08:36)
[2020-09-23 11:40] LABS: BASOPHILS # (AUTO) 0.1 /CMM (0.0-0.2); BASOPHILS % (AUTO) 0.4 % (0.0-2.0); EOSINOPHILS % (AUTO) 0.4 % (0.0-6.0); HEMATOCRIT 33 % (33-45); HEMOGLOBIN 10.8 g/dL (11.5-14.8); LYMPHOCYTES % (AUTO) 11.3 % (20.0-44.0); MEAN CORPUSCULAR HGB CONC 33 g/dl (31.0-36.0); MEAN CORPUSCULAR VOLUME 86 fL (82-100); MONOCYTES # (AUTO) 2.1 /CMM (0.1-1.30); NEUTROPHILS # (AUTO) 13.4 /CMM (1.8-8.9); NEUTROPHILS % (AUTO) 75.9 % (43.0-81.0); PLATELET COUNT (AUTO) 316 /CMM (150-450); RED BLOOD CELL COUNT(AUTO) 3.82 MIL/uL (4.0-5.2); WHITE BLOOD COUNT (AUTO) 17.7 K/uL (4.3-11.0)
[2020-09-23 11:56] LABS: CALCIUM, SERUM 8.2 mg/dL (8.5-10.1); MAGNESIUM 2.2 mg/dL (1.8-2.4); PHOSPHORUS 3.4 mg/dL (2.5-4.9); POTASSIUM 3.9 mmol/L (3.5-5.1)
[2020-09-23] MEDS: VANCOMYCIN 1 GM in IV D5W 250 ML IV SCH (14:34)
[2020-09-23] MEDS: IV 1/2NS 1000 ML 1,000 ML IV PRN (14:43)
[2020-09-23 16:00] VITALS: BP 141/76
[2020-09-23] MEDS: METFORMIN 500 MG TABLET PO SCH (16:37)
--- NOTE | 2020-09-23 17:52 | NUR ---
NURSE PRIVATE DUTY NOTE LAB RESULT - PRELIMINARY AFB SMEAR IS NEGATIVE.
--- NOTE | 2020-09-23 18:39 | NUR ---
DIESEL POWER SHOVEL OPERATOR CLOSING NOTE PATIENT CURRENTLY LYING IN BED, RESTING. A/O X4. AIRBORNE AND CONTACT ISOLATION IMPLEMENTED. UNDERSTANDS INDONESIAN. NO DISTRESS OR PAIN NOTED. NO SHORTNESS OF BREATH NOTED. PATIENT IS AMBULATORY. IV ACCESS TO RIGHT UPPER ARM - MIDLINE #18 - CURRENTLY RUNNING ZOSYN 3.375G IV @ 25ML/HR. PATIENT STILL HAS HEMOPTYSIS, OCCASIONAL COUGHING. PATIENT ON ROOM AIR - NO SHORTNESS OF BREATH NOTED. TELE MONITOR READS SINUS RHYTHM. PRELIMINARY AFB SMEAR IS NEGATIVE. SAFETY PRECAUTIONS IMPLEMENTED. CALL LIGHT WITHIN REACH. WILL ENDORSE TO MUCKER OPERATOR NURSE FOR NYDIA.
--- NOTE | 2020-09-23 19:29 | NUR ---
RN NOTES PATIENT CURRENTLY LYING IN BED, RESTING. A/O X4. AIRBORNE AND CONTACT ISOLATION IMPLEMENTED. UNDERSTANDS SERBIAN. NO DISTRESS OR PAIN NOTED. NO SHORTNESS OF BREATH NOTED. PATIENT IS AMBULATORY. IV ACCESS TO RIGHT UPPER ARM - MIDLINE #18 - CURRENTLY RUNNING ZOSYN 3.375G IV @ 25ML/HR. PATIENT, OCCASIONAL COUGHING. PATIENT ON ROOM AIR - NO SHORTNESS OF BREATH NOTED. TELE MONITOR READS SINUS RHYTHM. PRELIMINARY AFB SMEAR IS NEGATIVE. SAFETY PRECAUTIONS IMPLEMENTED. CALL LIGHT WITHIN REACH. WILL CONTINUE TO MONITOR.
[2020-09-23 20:00] VITALS: BP 130/73
[2020-09-23] MEDS: INSULIN GLARGINE, 100 UNIT/ML CARTRIDGE SQ SCH (22:08)
[2020-09-24] VITALS (7 sets, daily range): BP systolic 126–145; BP diastolic 68–84
[2020-09-24] MEDS: VANCOMYCIN 1 GM in IV D5W 250 ML IV SCH ×2 (01:13→14:16)
[2020-09-24] MEDS: PIPERACILLIN /TAZOBACTAM 3.375 G in IV D5W 100 ML IV SCH ×3 (02:13→17:59)
[2020-09-24] MEDS: IV 1/2NS 1000 ML 1,000 ML IV PRN (02:43)
[2020-09-24 06:40] LABS: BASOPHILS % (AUTO) 0.2 % (0.0-2.0); HEMATOCRIT 32 % (33-45); HEMOGLOBIN 10.6 g/dL (11.5-14.8); LYMPHOCYTES # (AUTO) 1.7 /CMM (0.8-4.8); LYMPHOCYTES % (AUTO) 12.1 % (20.0-44.0); MEAN CORPUSCULAR HGB CONC 33 g/dl (31.0-36.0); MEAN CORPUSCULAR VOLUME 86 fL (82-100); MONOCYTES # (AUTO) 1.7 /CMM (0.1-1.30); MONOCYTES % (AUTO) 12.2 % (2.0-12.0); NEUTROPHILS # (AUTO) 10.6 /CMM (1.8-8.9); NEUTROPHILS % (AUTO) 74.5 % (43.0-81.0); PLATELET COUNT (AUTO) 307 /CMM (150-450); WHITE BLOOD COUNT (AUTO) 14.2 K/uL (4.3-11.0)
[2020-09-24] MEDS: BLOOD SUGAR DIAGNOSTIC 1 EACH STRIP IN SCH ×4 (06:47→22:16)
[2020-09-24] MEDS: INSULIN REGULAR, HUMAN 100 UNIT/ML 3 ML VIAL SQ PRN ×4 (06:49→22:17)
--- NOTE | 2020-09-24 07:01 | NUR ---
RN NOTES PATIENT CURRENTLY LYING IN BED, RESTING. A/O X4. AIRBORNE AND CONTACT ISOLATION IMPLEMENTED. UNDERSTANDS TAJIK. NO DISTRESS OR PAIN NOTED. NO SHORTNESS OF BREATH NOTED. PATIENT IS AMBULATORY. IV ACCESS TO RIGHT UPPER ARM - MIDLINE #18 - CURRENTLY RUNNING ZOSYN 3.375G IV @ 25ML/HR. PATIENT, OCCASIONAL COUGHING. PATIENT ON ROOM AIR - NO SHORTNESS OF BREATH NOTED. TELE MONITOR READS SINUS RHYTHM. SAFETY PRECAUTIONS IMPLEMENTED. CALL LIGHT WITHIN REACH. WILL ENDORSE CARE TO DAY SHIFT NURSE..
[2020-09-24 07:06] LABS: ALBUMIN 2.2 g/dL (3.4-5.0); BILIRUBIN,TOTAL 0.6 mg/dL (0.2-1.0); CALCIUM, SERUM 8.3 mg/dL (8.5-10.1); CREATININE 0.8 mg/dL (0.6-1.3); POTASSIUM 3.6 mmol/L (3.5-5.1); TOTAL PROTEIN, SERUM 6.8 g/dL (6.4-8.2)
--- NOTE | 2020-09-24 07:10 | NUR ---
MS RN NOTES PATIENT IN BED ALERT ORIENTED X 4. NO ACUTE DISTRESS NOTED. BREATHING UNLABORED. NO SOB NOTED. IV ACCESS PATENT AND INTACT. SAFETY MEASURES IN PLACE. CALL LIGHT WITHIN REACH. WILL CONTINUE TO MONITOR ACCORDINGLY
[2020-09-24] MEDS ORDERED: PANTOPRAZOLE 40 MG TABLET.DR PO SCH (07:30)
[2020-09-24] MEDS: PANTOPRAZOLE 40 MG TABLET.DR PO SCH (08:22)
[2020-09-24] MEDS: CLOPIDOGREL BISULFATE 75 MG TABLET PO SCH (10:02)
[2020-09-24] MEDS: METFORMIN 500 MG TABLET PO SCH ×2 (10:02→18:00)
[2020-09-24] MEDS: LINAGLIPTIN 5 MG TABLET PO SCH (10:02)
[2020-09-24] MEDS: AMLODIPINE BESYLATE 5 MG TABLET PO SCH (10:03)
[2020-09-24] MEDS: LOSARTAN POTASSIUM 50 MG TABLET PO SCH (10:03)
[2020-09-24] MEDS: TAMOXIFEN CITRATE 10 MG TABLET PO SCH (10:04)
--- NOTE | 2020-09-24 19:00 | NUR ---
MS RN NOTES PATIENT IN BED ALERT ORIENTED X 4. NO ACUTE DISTRESS NOTED. BREATHING UNLABORED. NO SOB NOTED. IV ACCESS PATENT AND INTACT. NEEDS ATTENDED AND ANTICIPATED. SAFETY MEASURES IN PLACE. CALL LIGHT WITHIN REACH. WILL ENDORSE TO NIGHT NURSE FOR CONTINUITY OF CARE.
--- NOTE | 2020-09-24 20:24 | NUR ---
SWEEPER CLEANER INDUSTRIAL OPENING NOTE PATIENT A/OX4; ABLE TO MAKE NEEDS KNOWN. ON ROOM AIR; TOLERATING WELL WITH NO SOB. DENIES PAIN OR DISCOMFORT AT THIS TIME. EXTERNAL DOCK BOSS READS SINUS TACHY AT 120'S. RADHA MIDLINE #18G; PATENT AND INTACT. PLEURX TO LEFT ABDOMEN; DRESSING KEPT C/D/I. SAFETY MEASURES IN PLACE: BED IN LOWEST LOCKED POSITION, SIDE RAILS UP X2, CALL LIGHT WITHIN EASY REACH. WILL CONTINUE PLAN OF CARE.
[2020-09-24] MEDS: INSULIN GLARGINE, 100 UNIT/ML CARTRIDGE SQ SCH (22:18)
[2020-09-25] VITALS: BP 148/64
[2020-09-25] MEDS: VANCOMYCIN 1 GM in IV D5W 250 ML IV SCH (01:20)
[2020-09-25] MEDS: PIPERACILLIN /TAZOBACTAM 3.375 G in IV D5W 100 ML IV SCH ×2 (02:15→10:28)
[2020-09-25 04:00] VITALS: BP 126/65
[2020-09-25] MEDS: INSULIN REGULAR, HUMAN 100 UNIT/ML 3 ML VIAL SQ PRN ×4 (06:14→22:07)
--- NOTE | 2020-09-25 06:41 | NUR ---
ARCHITECTURE INSTRUCTOR CLOSING NOTE PATIENT A/OX4; ABLE TO MAKE NEEDS KNOWN. ON ROOM AIR; TOLERATING WELL WITH NO SOB. DENIES PAIN OR DISCOMFORT AT THIS TIME. EXTERNAL INSTRUMENT PANEL ASSEMBLER READS SINUS TACHY AT 120'S. RADHA MIDLINE #18G; INFUSING NS @75ML/HR; PATENT AND INTACT. PLEURX TO LEFT ABDOMEN; DRESSING KEPT C/D/I. SAFETY MEASURES IN PLACE: BED IN LOWEST LOCKED POSITION, SIDE RAILS UP X2, CALL LIGHT WITHIN EASY REACH. WILL ENDORSE PLAN OF CARE TO ONCOMING MORNING RN.
--- NOTE | 2020-09-25 07:36 | NUR ---
TELEVISION CAMERA OPERATOR OPENING NOTE PATIENT A/OX4; ABLE TO MAKE NEEDS KNOWN. ON ROOM AIR; TOLERATING WELL WITH NO SOB. DENIES PAIN OR DISCOMFORT AT THIS TIME. EXTERNAL VICE PRESIDENT PHARMACY READS SINUS TACHY AT 120'S. RADHA MIDLINE #18G; PATENT AND INTACT. PLEURX TO LEFT ABDOMEN; DRESSING KEPT C/D/I. SAFETY MEASURES IN PLACE. PATIENT IS ON AIRBORNE ISOLATION PRECAUTION WILL MAINTAIN. BED IN LOWEST LOCKED POSITION, SIDE RAILS UP X2, CALL LIGHT WITHIN EASY REACH. WILL CONTINUE TO MONITOR
[2020-09-25] MEDS: BLOOD SUGAR DIAGNOSTIC 1 EACH STRIP IN SCH ×4 (07:46→22:04)
[2020-09-25 08:00] VITALS: BP 158/76
[2020-09-25] MEDS: PANTOPRAZOLE 40 MG TABLET.DR PO SCH (08:31)
[2020-09-25] MEDS: METFORMIN 500 MG TABLET PO SCH ×2 (09:30→16:27)
[2020-09-25] MEDS: CLOPIDOGREL BISULFATE 75 MG TABLET PO SCH (09:30)
[2020-09-25] MEDS: LINAGLIPTIN 5 MG TABLET PO SCH (09:30)
[2020-09-25] MEDS: TAMOXIFEN CITRATE 10 MG TABLET PO SCH (09:35)
[2020-09-25] MEDS: LOSARTAN POTASSIUM 50 MG TABLET PO SCH (09:35)
[2020-09-25] MEDS: AMLODIPINE BESYLATE 5 MG TABLET PO SCH (09:35)
[2020-09-25 09:38] LABS: BASOPHILS # (AUTO) 0.1 /CMM (0.0-0.2); BASOPHILS % (AUTO) 0.5 % (0.0-2.0); EOSINOPHILS % (AUTO) 1.7 % (0.0-6.0); HEMATOCRIT 33 % (33-45); HEMOGLOBIN 10.5 g/dL (11.5-14.8); LYMPHOCYTES # (AUTO) 1.2 /CMM (0.8-4.8); LYMPHOCYTES % (AUTO) 8.8 % (20.0-44.0); MEAN CORPUSCULAR HGB CONC 32 g/dl (31.0-36.0); MEAN CORPUSCULAR VOLUME 88 fL (82-100); MONOCYTES # (AUTO) 1.8 /CMM (0.1-1.30); MONOCYTES % (AUTO) 12.6 % (2.0-12.0); NEUTROPHILS # (AUTO) 10.8 /CMM (1.8-8.9); NEUTROPHILS % (AUTO) 76.4 % (43.0-81.0); PLATELET COUNT (AUTO) 299 /CMM (150-450); RED BLOOD CELL COUNT(AUTO) 3.75 MIL/uL (4.0-5.2); WHITE BLOOD COUNT (AUTO) 14.1 K/uL (4.3-11.0)
[2020-09-25 09:56] LABS: CALCIUM, SERUM 8.8 mg/dL (8.5-10.1); CREATININE 0.9 mg/dL (0.6-1.3); MAGNESIUM 2.3 mg/dL (1.8-2.4); PHOSPHORUS 3.7 mg/dL (2.5-4.9); POTASSIUM 4.1 mmol/L (3.5-5.1)
[2020-09-25 12:00] VITALS: BP 143/64
[2020-09-25 16:00] VITALS: BP 134/76
[2020-09-25] MEDS: GLUCERNA SHAKE 237 ML CAN PO SCH (17:14)
--- NOTE | 2020-09-25 18:34 | NUR ---
MS RN CLOSING NOTES PATIENT A/OX4; ABLE TO MAKE NEEDS KNOWN. ON ROOM AIR; TOLERATING WELL WITH NO SOB. DENIES PAIN OR DISCOMFORT AT THIS TIME. PATIENT IS ABLE TO MAKE NEEDS KNOWN. RADHA MIDLINE #18G; PATENT AND INTACT. PLEURX TO LEFT ABDOMEN; DRESSING KEPT C/D/I. SAFETY MEASURES IN PLACE. PATIENT WAS ON AIRBORNE ISOLATION PRECAUTION THROUGHOUT SHIFT. ALL MEDICATION GIVEN AND NEEDS MET. BED IN LOWEST LOCKED POSITION, SIDE RAILS UP X2, CALL LIGHT WITHIN EASY REACH. WILL ENDORSE TO NEXT SHIFT.
--- NOTE | 2020-09-25 19:15 | NUR ---
MS RN OPENING NOTE PATIENT IN BED AWAKE, RESTING. PATIENT A/O X 4. ABLE TO MAKE NEEDS KNOWN. TOLERATING ROOM AIR. NO S/S OF RESPIRATORY DISTRESS. BREATHING EVEN AND UNLABORED. PLEURX CLEAN AND DRY. ISOLATION PRECAUTIONS STILL IN PLACE. NO N/V/PAIN OR DISCOMFORT AT THIS TIME. RADHA MIDLINE INTACT AND PATENT. SAFETY MEASURES IN PLACE: BED IN THE LOWEST AND LOCKED POSITION, CALL LIGHT WITHIN REACH, SIDE RAILS UP. WILL MONITOR PATIENT CLOSELY.
[2020-09-25 20:00] VITALS: BP 129/60
[2020-09-25] MEDS: INSULIN GLARGINE, 100 UNIT/ML CARTRIDGE SQ SCH (22:06)
[2020-09-26 07:22] LABS: BASOPHILS # (AUTO) 0.1 /CMM (0.0-0.2); BASOPHILS % (AUTO) 0.4 % (0.0-2.0); EOSINOPHILS % (AUTO) 2.5 % (0.0-6.0); HEMATOCRIT 35 % (33-45); HEMOGLOBIN 11.3 g/dL (11.5-14.8); LYMPHOCYTES % (AUTO) 13.9 % (20.0-44.0); MEAN CORPUSCULAR HGB CONC 33 g/dl (31.0-36.0); MEAN CORPUSCULAR VOLUME 87 fL (82-100); MONOCYTES # (AUTO) 1.4 /CMM (0.1-1.30); NEUTROPHILS # (AUTO) 10.4 /CMM (1.8-8.9); NEUTROPHILS % (AUTO) 73.2 % (43.0-81.0); PLATELET COUNT (AUTO) 347 /CMM (150-450); RED BLOOD CELL COUNT(AUTO) 3.98 MIL/uL (4.0-5.2); WHITE BLOOD COUNT (AUTO) 14.2 K/uL (4.3-11.0)
--- NOTE | 2020-09-26 07:30 | NUR ---
MS RN CLOSING NOTE PATIENT IN BED RESTING, NO DISCOMFORT REPORTED AT THIS TIME. ALL NEEDS MET AND ATTENDED. TOLERATING ROOM AIR AT 95%. BREATHING EVEN AND UNLABORED. ROUTINE MEDICATIONS AND PRN MEDICATIONS GIVEN. ALL ORDERS CARRIED OUT. SAFETY MEASURES MAINTAINED. ENDORSED TO DAY SHIFT NURSE FOR NYDIA.
[2020-09-26 07:42] LABS: CALCIUM, SERUM 8.6 mg/dL (8.5-10.1); CREATININE 0.9 mg/dL (0.6-1.3); MAGNESIUM 2.2 mg/dL (1.8-2.4); PHOSPHORUS 3.9 mg/dL (2.5-4.9); POTASSIUM 4.2 mmol/L (3.5-5.1)
[2020-09-26 08:00] VITALS: BP 143/66
[2020-09-26] MEDS: GLUCERNA SHAKE 237 ML CAN PO SCH ×3 (08:00→17:04)
--- NOTE | 2020-09-26 08:00 | NUR ---
m/s wood machinist: notes pt having breakfast with hob elevated. no c/o sob, chest pain, or any discomfort. instructed to call for assistance. will continue to monitor. Addendum: 09/26/20 at 1745 by ASHISH WELDON STATISTICAL ASSISTANT s/p Left thoracoscopy, pleural biopsy, and insertion of a PleurX catheter on 09/22/20, dressing in place. no distress noted.
[2020-09-26] MEDS: BLOOD SUGAR DIAGNOSTIC 1 EACH STRIP IN SCH ×4 (08:01→21:45)
[2020-09-26] MEDS: INSULIN REGULAR, HUMAN 100 UNIT/ML 3 ML VIAL SQ PRN ×4 (08:02→21:47)
[2020-09-26] MEDS: AMLODIPINE BESYLATE 5 MG TABLET PO SCH (08:08)
[2020-09-26] MEDS: PANTOPRAZOLE 40 MG TABLET.DR PO SCH (08:08)
[2020-09-26] MEDS: CLOPIDOGREL BISULFATE 75 MG TABLET PO SCH (08:08)
[2020-09-26] MEDS: LINAGLIPTIN 5 MG TABLET PO SCH (08:08)
[2020-09-26] MEDS: TAMOXIFEN CITRATE 10 MG TABLET PO SCH (08:08)
[2020-09-26] MEDS: VALSARTAN 80 MG TABLET PO SCH (08:08)
[2020-09-26] MEDS: METFORMIN 500 MG TABLET PO SCH ×2 (08:08→17:04)
--- NOTE | 2020-09-26 12:00 | NUR ---
m/s forest firefighter: notes lunch served. hob elevated. isolation precaution maintained. instructed to call for assistance. will continue to monitor.
--- NOTE | 2020-09-26 14:00 | NUR ---
m/s portfolio architect: notes pt resting comfortable. no c/o sob. Left side back PleurX catheter in place with dressing. remains on isolation and maintained. will continue to monitor.
[2020-09-26 16:00] VITALS: BP 137/61
--- NOTE | 2020-09-26 17:00 | NUR ---
m/s learning consultant: notes dinner served. no distress noted. no c/o sob, chest pain, or any discomfort. instructed to call for assistance. will continue to monitor.
--- NOTE | 2020-09-26 19:30 | NUR ---
m/s coffee shop manager: notes report given to madan (norma) for continuity of care.
--- NOTE | 2020-09-26 19:30 | NUR ---
MS RN OPENING NOTE PATIENT IN BED RESTING, EASILY AROUSED. PATIENT DOES NOT COMPLAIN OF ANY PAIN OR DISCOMFORT AT THIS TIME. ABLE TO MAKE NEEDS KNOWN. BREATHING EVEN AND UNLABORED. PLEURX CATHETER AND DRESSING STILL INTACT, CLEAN AND DRY. SAFETY MEASURES IN PLACE: HOB ELEVATED, SIDE RAILS UP, BED IN LOCKED AND LOWEST POSITION. CALL LIGHT WITHIN REACH. WILL MONITOR PATIENT CLOSELY.
[2020-09-26 20:00] VITALS: BP 148/83
[2020-09-26] MEDS: INSULIN GLARGINE, 100 UNIT/ML CARTRIDGE SQ SCH (21:46)
[2020-09-27 06:38] LABS: BASOPHILS % (AUTO) 0.3 % (0.0-2.0); EOSINOPHILS % (AUTO) 3.6 % (0.0-6.0); HEMATOCRIT 34 % (33-45); LYMPHOCYTES # (AUTO) 1.6 /CMM (0.8-4.8); LYMPHOCYTES % (AUTO) 12.5 % (20.0-44.0); MEAN CORPUSCULAR HGB CONC 32 g/dl (31.0-36.0); MEAN CORPUSCULAR VOLUME 87 fL (82-100); MONOCYTES # (AUTO) 1.6 /CMM (0.1-1.30); MONOCYTES % (AUTO) 12.1 % (2.0-12.0); NEUTROPHILS # (AUTO) 9.2 /CMM (1.8-8.9); NEUTROPHILS % (AUTO) 71.5 % (43.0-81.0); PLATELET COUNT (AUTO) 366 /CMM (150-450); RED BLOOD CELL COUNT(AUTO) 3.93 MIL/uL (4.0-5.2); WHITE BLOOD COUNT (AUTO) 12.8 K/uL (4.3-11.0)
[2020-09-27] MEDS: INSULIN REGULAR, HUMAN 100 UNIT/ML 3 ML VIAL SQ PRN ×4 (06:48→22:20)
[2020-09-27] MEDS: BLOOD SUGAR DIAGNOSTIC 1 EACH STRIP IN SCH ×4 (06:49→22:28)
[2020-09-27 07:02] LABS: CALCIUM, SERUM 9.1 mg/dL (8.5-10.1); CREATININE 0.9 mg/dL (0.6-1.3); MAGNESIUM 2.1 mg/dL (1.8-2.4); PHOSPHORUS 4.5 mg/dL (2.5-4.9); POTASSIUM 4.2 mmol/L (3.5-5.1)
--- NOTE | 2020-09-27 07:30 | NUR ---
MS RN CLOSING NOTE PATIENT IN BED RESTING, EASILY AROUSED. A/O X 4. BREATHING EVEN AND UNLABORED. PATIENT CURRENTLY ON 2 L OF SUPPLEMENTAL OXYGEN SHE COMPLAINED OF DYSPNEA BECAUSE OF THE COUGHING, O2 SATURATION 98%. PATIENT'S PLEURX DRESSING STILL INTACT AND DRY. DOES NOT COMPLAIN OF ANY PAIN AT THIS TIME. ALL ORDERS CARRIED OUT. ALL NEEDS MET AND ATTENDED. ROUTINE AND PRN MEDICATIONS GIVEN. ENDORSED TO DAY SHIFT NURSE FOR NYDIA.
[2020-09-27] MEDS: GLUCERNA SHAKE 237 ML CAN PO SCH ×3 (08:00→17:37)
[2020-09-27] MEDS: VALSARTAN 80 MG TABLET PO SCH (09:54)
[2020-09-27] MEDS: LINAGLIPTIN 5 MG TABLET PO SCH (09:55)
[2020-09-27] MEDS: PANTOPRAZOLE 40 MG TABLET.DR PO SCH (09:55)
[2020-09-27] MEDS: METFORMIN 500 MG TABLET PO SCH ×2 (09:55→17:37)
[2020-09-27] MEDS: hydrALAZINE HCL 50 MG TABLET PO SCH ×3 (09:55→16:19)
[2020-09-27] MEDS: CLOPIDOGREL BISULFATE 75 MG TABLET PO SCH (09:55)
[2020-09-27] MEDS: AMLODIPINE BESYLATE 5 MG TABLET PO SCH (09:56)
[2020-09-27] MEDS: TAMOXIFEN CITRATE 10 MG TABLET PO SCH (09:58)
--- NOTE | 2020-09-27 11:50 | NUR ---
Patient c/o SOB. V/S 98.4, 116/43, 100, 24, 99%. Blood sugar is 166. Oxygen via nasal cannula in place at 2 L/min. JOYCE Carey notified. Orders for stat CXR, albuterol/atrovent unit dose, and xanax 0.25 mg x 1 received and carried. Family updated, agree with POC. Addendum: 09/27/20 at 1418 by REGISTRY [facility] INPATIENT RN2 RN Pluex dressing to left back is c/d/i. Lungs clear, diminished bilaterally.
[2020-09-27] MEDS ORDERED: ALPRAZOLAM 0.25 MG TABLET PO ONE (12:30)
[2020-09-27] MEDS: IPRATROPIUM NEB FS 0.5 MG/2.5 ML AMPUL.NEB NEB PRN ×2 (12:46→19:51)
[2020-09-27] MEDS: ALBUTEROL FS 2.5 MG/3 ML VIAL.NEB NEB PRN ×2 (12:46→19:51)
--- NOTE | 2020-09-27 18:47 | NUR ---
RN CLOSING NOTE PATIENT IN BED RESTING, EASILY AROUSED. A/O X 4. BREATHING EVEN AND UNLABORED. PATIENT CURRENTLY ON 2 L OF SUPPLEMENTAL OXYGEN SHE COMPLAINED OF DYSPNEA BECAUSE OF THE COUGHING, O2 SATURATION 98%. AFEBRILE, VSS. PATIENT GIVEN XANAX X 1 AND BREATHING TREATMENT PRN. PATIENT'S PLEURX DRESSING STILL INTACT AND DRY. DOES NOT COMPLAIN OF ANY PAIN AT THIS TIME. ALL ORDERS CARRIED OUT. ALL NEEDS MET AND ATTENDED. ROUTINE AND PRN MEDICATIONS GIVEN. ENDORSED TO EAR[employer] SCIENCE TECHNICAL OFFICER NURSE FOR NYDIA.
--- NOTE | 2020-09-27 19:50 | NUR ---
MS RN OPENING NOTE PATIENT AWAKE IN BED, ALERT AND ORIENTED X 4. NO ACUTE DISTRESS NOTED. PATIENT ON 4L OF OXYGEN VIA NASAL CANNULA DUE TO PATIENT REPORTING SHORTNESS OF BREATH, SPO2 OF 100%. WHEEZING HEARD THROUGHOUT LUNGS BILATERALLY ON AUSCULTATION. NO REPORTS OF PAIN AT THIS TIME. RIGHT UPPER ARM MIDLINE #18G CLEAN, DRY AND INTACT. PLEURX ON LEFT SIDE OF BACK CLEAN, DRY AND INTACT. PATIENT ABLE TO MAKE NEEDS KNOWN. SAFETY MEASURES IN PLACE, BED LOCKED IN LOWEST POSITION, BED ALARM ON, CALL LIGHT WITHIN REACH. WILL CONTINUE TO MONITOR
[2020-09-27 20:16] VITALS: BP 116/53
[2020-09-27] MEDS ORDERED: METOLAZONE 2.5 MG TABLET PO ONE (21:30)
[2020-09-27] MEDS ORDERED: BUMETANIDE INJ 0.25 MG/ML VIAL IV ONE (21:30)
[2020-09-27] MEDS: INSULIN GLARGINE, 100 UNIT/ML CARTRIDGE SQ SCH (22:01)
--- NOTE | 2020-09-28 06:30 | NUR ---
MS RN NOTE PATIENT BLOOD GLUCOSE LEVEL IS 133. PATIENT REFUSED INSULIN. RISKS AND BENEFITS EXPLAINED TO THE PATIENT. PATIENT VERBALIZED UNDERSTANDING
--- NOTE | 2020-09-28 06:57 | NUR ---
MS RN CLOSING NOTE PATIENT RESTING IN BED, ALERT AND ORIENTED X 4. NO ACUTE DISTRESS OR SHORTNESS OF BREATH NOTED. PATIENT ON 2L OF OXYGEN VIA NASAL CANNULA. NO REPORTS OF PAIN AT THIS TIME. RIGHT UPPER ARM MIDLINE #18G CLEAN, DRY AND INTACT. PLEURX ON LEFT SIDE OF BACK CLEAN, DRY AND INTACT. PATIENT ABLE TO MAKE NEEDS KNOWN. MEDICATIONS GIVEN ORDER AND ALL NEEDS MET THROUGHOUT SHIFT. SAFETY MEASURES IN PLACE, BED LOCKED IN LOWEST POSITION, BED ALARM ON, CALL LIGHT WITHIN REACH. WILL ENDORSE TO DAY SHIFT NURSE FOR CONTINUITY OF CARE.
[2020-09-28 07:04] LABS: BASOPHILS # (AUTO) 0.1 /CMM (0.0-0.2); BASOPHILS % (AUTO) 0.5 % (0.0-2.0); EOSINOPHILS % (AUTO) 2.5 % (0.0-6.0); HEMATOCRIT 30 % (33-45); HEMOGLOBIN 9.6 g/dL (11.5-14.8); LYMPHOCYTES # (AUTO) 1.4 /CMM (0.8-4.8); MEAN CORPUSCULAR HGB CONC 32 g/dl (31.0-36.0); MEAN CORPUSCULAR VOLUME 87 fL (82-100); MONOCYTES # (AUTO) 1.6 /CMM (0.1-1.30); MONOCYTES % (AUTO) 11.6 % (2.0-12.0); NEUTROPHILS # (AUTO) 10.3 /CMM (1.8-8.9); NEUTROPHILS % (AUTO) 75.4 % (43.0-81.0); PLATELET COUNT (AUTO) 363 /CMM (150-450); RED BLOOD CELL COUNT(AUTO) 3.39 MIL/uL (4.0-5.2); WHITE BLOOD COUNT (AUTO) 13.6 K/uL (4.3-11.0)
[2020-09-28 07:35] LABS: CALCIUM, SERUM 9.1 mg/dL (8.5-10.1); CARBON DIOXIDE 29 mmol/L (21-32); CHLORIDE 99 mmol/L (98-107); CREATININE 1.5 mg/dL (0.6-1.3); GLUCOSE 184 mg/dL (74-106); MAGNESIUM 2.1 mg/dL (1.8-2.4); PHOSPHORUS 5.3 mg/dL (2.5-4.9); POTASSIUM 4.8 mmol/L (3.5-5.1); SODIUM SERUM 135 mmol/L (136-145); UREA NITROGEN, BLOOD 29 mg/dL (7-18)
--- NOTE | 2020-09-28 07:35 | NUR ---
MS RN OPENING NOTE RECEIVED PATIENT AWAKE IN BED, A/O X4X 4. NO ACUTE DISTRESS OR SHORTNESS OF BREATH NOTED. PATIENT ON 2L OF OXYGEN VIA NASAL CANNULA. NO COMPLAIN OF PAIN AND DISCOMFORT AT THIS TIME. RIGHT UPPER ARM MIDLINE #18G CLEAN, DRY AND INTACT. PLEURX ON LEFT SIDE OF BACK CLEAN, DRY AND INTACT. PATIENT ABLE TO MAKE NEEDS KNOWN. SAFETY MEASURES IN PLACE, BED LOCKED AND IN LOW POSITION, BED ALARM ON, CALL LIGHT WITHIN REACH. WILL CONTINUE TO MONITOR.
[2020-09-28] MEDS: BLOOD SUGAR DIAGNOSTIC 1 EACH STRIP IN SCH ×3 (07:38→17:30)
[2020-09-28 08:00] VITALS: BP 122/58
[2020-09-28] MEDS: PANTOPRAZOLE 40 MG TABLET.DR PO SCH (08:30)
[2020-09-28] MEDS: GLUCERNA SHAKE 237 ML CAN PO SCH ×3 (08:31→17:02)
[2020-09-28] MEDS: hydrALAZINE HCL 50 MG TABLET PO SCH ×3 (09:22→17:02)
[2020-09-28] MEDS: METFORMIN 500 MG TABLET PO SCH ×2 (09:23→17:02)
[2020-09-28] MEDS: CLOPIDOGREL BISULFATE 75 MG TABLET PO SCH (09:23)
[2020-09-28] MEDS: VALSARTAN 80 MG TABLET PO SCH (09:23)
[2020-09-28] MEDS: TAMOXIFEN CITRATE 10 MG TABLET PO SCH (09:23)
[2020-09-28] MEDS: LINAGLIPTIN 5 MG TABLET PO SCH (09:24)
[2020-09-28] MEDS: AMLODIPINE BESYLATE 5 MG TABLET PO SCH (09:24)
[2020-09-28] MEDS: INSULIN REGULAR, HUMAN 100 UNIT/ML 3 ML VIAL SQ PRN ×2 (12:03→17:30)
--- NOTE | 2020-09-28 12:52 | NUR ---
RN NOTES PATIENT TRIED TO PLACED ON ROOM AIR, NOTED DESATURATING BELOW 88% AT REST. PLACED BACK ON N/C AT 2LPM, O2 SAT WENT UP TO 96-97%. WILL CONTINUE TO MONITOR.
[2020-09-28] MEDS ORDERED: VALS80TA2 PO (13:24)
[2020-09-28] MEDS ORDERED: ALBU8.5H8 INH (13:24)
[2020-09-28 16:00] VITALS: BP 112/50
[2020-09-28 17:02] VITALS: BP 112/50
--- NOTE | 2020-09-28 18:51 | NUR ---
MS RN CLOSING NOTE PATIENT PLACE IN BED, AWAITING FOR DISCHARGE, ALERT AND ORIENTED X 4. NO ACUTE DISTRESS OR SHORTNESS OF BREATH NOTED. PATIENT ON 2L OF OXYGEN VIA NASAL CANNULA.NO COMPLAIN OF PAIN AND DISCOMFORT .AMBULTORY WITH ASSISTANCE, RIGHT UPPER ARM MIDLINE #18G CLEAN, DRY AND INTACT. PLEURX ON LEFT SIDE OF BACK CLEAN, DRY AND INTACT. PATIENT ABLE TO MAKE NEEDS KNOWN. MEDICATIONS GIVEN ORDER AND ALL NEEDS MET, BED IN LOW POSITION,, BED ALARM ON, CALL LIGHT WITHIN REACH. . PORTABLE OXYGEN WITH PATIENT TO BE TAKEN HOME, WILL ENDORSE TO DAY SHIFT NURSE FOR CONTINUITY OF CARE
--- NOTE | 2020-09-28 19:30 | NUR ---
MS/RN OPENING NOTE RECEIVED PATIENT RESTING IN BED. AWAKE, ALERT AND ORIENTED X 4. ABLE TO MAKE NEEDS KNOWN. NO COMPLAINTS OF PAIN AT THIS TIME. MIDLINE TO RIGHT UPPER ARM INTACT AND PATENT. CONTINUES ON O2 2L VIA NC WITH NO SIGNS OR SYMPTOMS OF RESPIRATORY DISTRESS NOTED. PLEUREX DRESSING TO LEFT POSTERIOR BACK CLEAN, DRY AND INTACT. CALL LIGHT WITHIN REACH. ASPIRATION, FALL AND SAFETY PRECAUTIONS MAINTAINED. WILL CONTINUE TO MONITOR.
--- NOTE | 2020-09-28 20:30 | NUR ---
MS/CLINICAL FIELD SPECIALIST NOTE PATIENT DISCHARGED WITH SON AT APPROX. 20:30. PATIENT ALERT AND ORIENTED X 4. NO COMPLAINTS OF PAIN NOTED. REMOVED MIDLINE IV TO RIGHT UPPER ARM WITH TIP INTACT AND PATIENT TOLERATING WELL. PRESSURE DRESSING APPLIED. DRESSING TO PLEURX CATHETER CLEAN, DRY AND INTACT. PATIENT SIGNED BOTH DISCHARGE PAPERWORK AND BELONGINGS LIST. PATIENT SENT HOME WITH ALL BELONGINGS. EDUCATED SON ON HOW TO PROPERLY USE THE PLEURX CATHETER AND DRAINAGE SYSTEM WITH SON VERBALIZING UNDERSTANDING. EDUCATED PATIENT AND SON ON IMPORTANCE OF FOLLOWING UP WITH ONCOLOGIST WITH VERBAL AGREEMENT. SON EDUCATED ON PORTABLE O2 SYSTEM WITH RETURN DEMONSTRATION. ID BAND REMOVED FROM PATIENT. PATIENT BROUGHT DOWN TO LOBBY VIA WHEELCHAIR AND ASSISTED TO CAR.
[2020-09-28 23:15] LABS: BILIRUBIN,URINE NEGATIVE (NEGATIVE); COLOR,URINE YELLOW (YELLOW); LEUKOCYTE ESTERASE ,URINE NEGATIVE (NEGATIVE); NITRITE, URINE NEGATIVE (NEGATIVE); PH,URINE 5.5 (5.0-8.0); PROTEIN,URINE NEGATIVE (NEGATIVE); UGLUCOSE NEGATIVE (NEGATIVE); UROBILINOGEN,URINE 0.2 EU/dL (0.2)
[2020-09-28 23:28] LABS: BACTERIA,URINE Few /HPF (None Seen); RBC,URINE 0-2 /HPF (0-2); SQUAMOUS EPITHELIAL CELL,UR Many /HPF (None Seen); YEAST,URINE Few /HPF (None Seen)
== END 2020-09-28 20:45 | disposition home or self-care (01) | DRG 710 ==
LOC: ER 01:32 → TELE 08:39 → MED 09-21 10:48 → TELE 09-22 17:44 → MED 09-25 14:05
PROVIDERS: ADMIT Nurse Practitioner Acute Care; ATTEND Nurse Practitioner Acute Care
PROC: 0BBP4ZX Excision of Left Pleura, Percutaneous Endoscopic Approach, Diagnostic (ICD-10-PCS; 2020-09-22)
PROC: 0B9P40Z Drainage of Left Pleura with Drainage Device, Percutaneous Endoscopic Approach (ICD-10-PCS; 2020-09-22)
PROC: 02HV33Z Insertion of Infusion Device into Superior Vena Cava, Percutaneous Approach (ICD-10-PCS; principal; 2020-09-23)
PROC: B548ZZA Ultrasonography of Superior Vena Cava, Guidance (ICD-10-PCS; 2020-09-23)
DX: A41.9 Sepsis, unspecified organism (principal); J90 Pleural effusion, not elsewhere classified; E87.2 Acidosis; E46 Unspecified protein-calorie malnutrition; C78.00 Secondary malignant neoplasm of unspecified lung; I11.0 Hypertensive heart disease with heart failure; I50.9 Heart failure, unspecified; C50.919 Malignant neoplasm of unspecified site of unspecified female breast; D64.9 Anemia, unspecified; J98.4 Other disorders of lung; R04.2 Hemoptysis; E11.9 Type 2 diabetes mellitus without complications; K66.0 Peritoneal adhesions (postprocedural) (postinfection); Z90.13 Acquired absence of bilateral breasts and nipples; Z79.4 Long term (current) use of insulin; Z79.02 Long term (current) use of antithrombotics/antiplatelets; Z79.899 Other long term (current) drug therapy; Z79.83 Long term (current) use of bisphosphonates; E78.5 Hyperlipidemia, unspecified; R91.1 Solitary pulmonary nodule; N28.9 Disorder of kidney and ureter, unspecified; N13.30 Unspecified hydronephrosis
CPT/HCPCS: 36410; 36415; 36600; 71045-TC; 71250-TC; 80048-TC; 80053-TC; 80076-TC; 80202-TC; 81001; 82247-TC; 82248-TC; 82803-TC; 82962-TC; 83605-TC; 83735-TC; 83880; 84100-TC; 84484-TC; 85025-TC; 85730-TC; 86850-TC; 87040-TC; 87070-TC; 87116; 87206; 87899; 88305-TC; 88341; 88342; 94640-TC; 94799-TC; A6253; A6403; C1751; C9803; G0378; J0330; J1100; J1650; J1815; J2405; J2543; J2704; J3010; J3370; J3490; J7030; J7050; J7060; L3908